=== PATIENT | female | born 2000 | race African-American/Black ===

== ENCOUNTER 2024-06-05 03:01 | Emergency (ER) | payer OTHER ==
[~2024-06-05] VITALS: Ht 162.6 cm; Wt 61.2 kg
[2024-06-05 03:05] VITALS: BP 141/68; TEMP 98.5; O2SAT 100
[2024-06-05] MEDS ORDERED: ACETAMINOPHEN 325 MG TABLET ONE (03:30)
[2024-06-05] MEDS: ACETAMINOPHEN 325 MG TABLET PO ONE (03:31)
== END 2024-06-05 04:30 | disposition home or self-care (01) ==
LOC: ER 03:05
DX: J02.9 Acute pharyngitis, unspecified (principal); J45.909 Unspecified asthma, uncomplicated; R06.02 Shortness of breath; F12.90 Cannabis use, unspecified, uncomplicated